=== PATIENT | male | born 1950 | race Caucasian/White ===

== ENCOUNTER 2022-02-06 21:48 | Inpatient (IN) ==
[2022-02-06 22:37] LABS: ABS Lymphocytes 0.6 10^3/ul (1.0-4.8); ABS Monocytes 0.1 10^3/ul (0-0.8); ABS Neutrophils 7.5 10^3/ul (1.5-7.7); Eosinophil % 0.1 %; Hematocrit 48 % (42-52); Hemoglobin 16.4 g/dL (14.0-18.0); Lymphocyte % 7.5 %; Mean Corpuscular HGB Conc 34 g/dL (31-36); Mean Corpuscular Hemoglobin 32 pg (27-31); Mean Corpuscular Volume 93 fL (80-94); Mean Platelet Volume 9.7 fL (7.4-10.4); Platelet Count 216 10^3/uL (150-450); Red Blood Count 5.19 10^6 /uL (4.18-5.48); Red Cell Distribution Width 14 % (10-15); White Blood Count 8.3 10^3/uL (3.5-10.8)
[2022-02-06 22:59] LABS: Albumin 4.6 g/dL (3.2-5.2); Albumin/Globulin Ratio 1.9 (1-3); Calcium 9.7 mg/dL (8.6-10.3); Globulin 2.4 g/dL (2-4); Potassium 4.5 mmol/L (3.5-5.0); Total Bilirubin 0.9 mg/dL (0.2-1.0); eGFR CKD-EPI 61.6 (>60)
[2022-02-07 00:01] LABS: High Sensitivity Troponin 1 Hr 1195 pg/mL (<20)
[2022-02-07] MEDS ORDERED: Albuterol HFA INHALER 8 gm MDI INH PRN (01:51)
[2022-02-07 02:21] LABS: HDL Cholesterol 35.2 mg/dL
[2022-02-07 02:36] LABS: TSH Ultra Thyroid Stim Horm 1.75 mcIU/mL (0.34-5.60)
[2022-02-07] MEDS ORDERED: Heparin 5000 UNITS/ML 1 mL VIAL IV SCH (03:00)
[2022-02-07] MEDS: Heparin DRIP 25,000 UNITS BAG 25,000 UNITS/500 ML BAG IV SCH (03:11)
[2022-02-07 08:42] LABS: Magnesium 2.1 mg/dL (1.9-2.7)
[2022-02-07] MEDS ORDERED: NS 0.9% 500 ml BAG 500 ML IV ONE (09:26)
[2022-02-07 12:49] LABS: INR 1.18 (0.89-1.11)
[2022-02-07] MEDS ORDERED: Nicotine PATCH 14 MG/24 HR PATCH TRANSDERM SCH (16:00)
[2022-02-07] MEDS: Albuterol/Ipratropium NEB.SOL (2.5/0.5 MG) 3 ML NEB.SOLN INH PRN (23:26)
[2022-02-08] MEDS: Albuterol/Ipratropium NEB.SOL (2.5/0.5 MG) 3 ML NEB.SOLN INH PRN ×4 (03:38→21:55)
[2022-02-08] MEDS: Heparin DRIP 25,000 UNITS BAG 25,000 UNITS/500 ML BAG IV SCH (05:34)
[2022-02-08 06:30] LABS: ABS Basophils 0.1 10^3/ul (0-0.2); ABS Lymphocytes 2.8 10^3/ul (1.0-4.8); ABS Monocytes 0.8 10^3/ul (0-0.8); ABS Neutrophils 9.4 10^3/ul (1.5-7.7); Eosinophil % 0.2 %; Hematocrit 41 % (42-52); Hemoglobin 14.4 g/dL (14.0-18.0); Lymphocyte % 21.4 %; Mean Corpuscular HGB Conc 35 g/dL (31-36); Mean Corpuscular Hemoglobin 32 pg (27-31); Mean Corpuscular Volume 92 fL (80-94); Mean Platelet Volume 9.6 fL (7.4-10.4); Platelet Count 182 10^3/uL (150-450); Red Blood Count 4.52 10^6 /uL (4.18-5.48); Red Cell Distribution Width 14 % (10-15); White Blood Count 13.1 10^3/uL (3.5-10.8)
[2022-02-08 06:45] LABS: INR 1.18 (0.89-1.11)
[2022-02-08] MEDS ORDERED: NS 0.9% 1000 ml BAG 1,000 ML IV SCH (07:00)
[2022-02-08 07:10] LABS: Albumin 4.1 g/dL (3.2-5.2); Albumin/Globulin Ratio 2.2 (1-3); Calcium 9.2 mg/dL (8.6-10.3); Globulin 1.9 g/dL (2-4); Potassium 4.3 mmol/L (3.5-5.0); Total Bilirubin 0.9 mg/dL (0.2-1.0)
[2022-02-08 07:20] LABS: TSH Ultra Thyroid Stim Horm 2.83 mcIU/mL (0.34-5.60)
[2022-02-08] MEDS: Nicotine PATCH 14 MG/24 HR PATCH TRANSDERM SCH (08:53)
[2022-02-08] MEDS ORDERED: Furosemide 20 mg/2 ml IV VIAL IV ONE (11:30)
[2022-02-08] MEDS ORDERED: Heparin DRIP 25,000 UNITS BAG 25,000 UNITS/500 ML BAG IV SCH (12:01)
[2022-02-09] MEDS ORDERED: SPIRIVA Respimat (tiotropium) 2.5 mcg/inh Inhaler INH SCH (09:00)
[2022-02-09] MEDS ORDERED: cefTRIAXone 1 gm/50 mL D5W 1 GM/50 ML BAG IV SCH (09:15)
[2022-02-09] MEDS ORDERED: DOXYcycline 100 MG in NS 0.9% 250 ml 250 ML IVPB SCH (09:45)
[2022-02-09 10:03] LABS: ABS Basophils 0.1 10^3/ul (0-0.2); ABS Eosinophils 0.2 10^3/ul (0-0.6); ABS Monocytes 0.7 10^3/ul (0-0.8); ABS Neutrophils 6.6 10^3/ul (1.5-7.7); Eosinophil % 1.6 %; Hematocrit 43 % (42-52); Lymphocyte % 20.4 %; Mean Corpuscular HGB Conc 35 g/dL (31-36); Mean Corpuscular Hemoglobin 32 pg (27-31); Mean Corpuscular Volume 92 fL (80-94); Mean Platelet Volume 9.4 fL (7.4-10.4); Platelet Count 177 10^3/uL (150-450); Red Blood Count 4.68 10^6 /uL (4.18-5.48); Red Cell Distribution Width 14 % (10-15); White Blood Count 9.6 10^3/uL (3.5-10.8)
[2022-02-09 10:47] LABS: Calcium 9.1 mg/dL (8.6-10.3); Magnesium 2.1 mg/dL (1.9-2.7); Potassium 4.3 mmol/L (3.5-5.0); eGFR CKD-EPI 65.6 (>60)
[2022-02-09] MEDS: Nicotine PATCH 14 MG/24 HR PATCH TRANSDERM SCH (11:14)
[2022-02-09 15:05] VITALS: BP 102/62
== END 2022-02-09 19:15 | disposition home or self-care (01) | DRG 280 ==
LOC: ED 21:48 → EDHOLD 21:48 → SUATTDRO 02-07 01:22 → MEDTELE 02-07 10:13
PROVIDERS: ADMIT Nurse Practitioner; ATTEND Internal Medicine